=== PATIENT | female | born 1970 | race Caucasian/White ===

== ENCOUNTER 2021-09-08 05:53 | Day surgery (SDC) | payer OTHER ==
[~2021-09-08] VITALS: Ht 152.4 cm; Wt 77.1 kg
[2021-09-08] MEDS ORDERED: fentaNYL citrate 0.05 MG/ML VIAL ONE (07:24)
[2021-09-08] MEDS ORDERED: MIDAZOLAM 5 MG/5 ML VIAL ONE (07:24)
[2021-09-08] MEDS ORDERED: LIDOCAINE 2% 100 MG/5 ML UJET TP ONE (07:24)
[2021-09-08] MEDS ORDERED: diphenhydrAMINE 50 MG/ML VIAL ONE (07:24)
[2021-09-08] MEDS ORDERED: fentaNYL citrate 0.05 MG/ML VIAL IVP ONE (12:05)
[2021-09-08] MEDS ORDERED: MIDAZOLAM 2 MG/2 ML VIAL IVP ONE (12:05)
== END 2021-09-08 08:45 | disposition home or self-care (01) ==
LOC: MOR 05:53 → MMU 05:54 → MOR 08:45
PROVIDERS: ATTEND Internal Medicine Gastroenterology
DX: Z12.11 Encounter for screening for malignant neoplasm of colon (principal); K63.5 Polyp of colon; Z80.0 Family history of malignant neoplasm of digestive organs; I10 Essential (primary) hypertension; E78.5 Hyperlipidemia, unspecified; F32.9 Major depressive disorder, single episode, unspecified; K21.9 Gastro-esophageal reflux disease without esophagitis; E66.09 Other obesity due to excess calories; Z79.899 Other long term (current) drug therapy; Z20.822 Contact with and (suspected) exposure to COVID-19
CPT/HCPCS: 45385; 81025; 87426; 88305; J2250; J3010; J1200